=== PATIENT | female | born 1960 | race Caucasian/White ===

== ENCOUNTER → 2016-07-17 | Outpatient (CLI) | payer MEDICARE, MEDICAID ==
[~2016-07-17] MED LIST: ALBU2.5V7 AEROSOL; ALBU8.5H INH; CAND16TA2 PO; FLUT1DIS3 INH; MULT-1243 PO; TRAM50TA53 PO
== END ==
LOC: WC.BC 13:05
DX: Z12.31 Encounter for screening mammogram for malignant neoplasm of breast (principal); N64.59 Other signs and symptoms in breast
CPT/HCPCS: 77063; G0202